=== PATIENT | male | born 1990 | race African-American/Black ===

== ENCOUNTER 2018-03-10 14:13 | Emergency (ER) | payer SELFPAY ==
[~2018-03-10] VITALS: Ht 167.6 cm; Wt 77.0 kg
[2018-03-10 18:15] VITALS: BP 141/71
== END 2018-03-10 18:15 | disposition home or self-care (01) ==
LOC: ER 18:10
DX: S01.81XD Laceration without foreign body of other part of head, subsequent encounter (principal); X58.XXXD Exposure to other specified factors, subsequent encounter
CPT/HCPCS: 99282

== ENCOUNTER 2018-03-15 16:02 | Emergency (ER) | payer SELFPAY ==
[~2018-03-15] VITALS: Ht 175.3 cm; Wt 77.6 kg
[2018-03-15 21:20] VITALS: BP 130/72
== END 2018-03-15 21:41 | disposition home or self-care (01) ==
LOC: ER 16:02
DX: Z48.02 Encounter for removal of sutures (principal)
CPT/HCPCS: 99281